=== PATIENT | female | born 1950 | race Caucasian/White ===

== ENCOUNTER 2020-01-21 15:52 | Emergency (ER) | payer MEDICARE, OTHER ==
--- NOTE | 2020-01-21 16:49 | EDM.PDOC ---
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 She thought she may have thrush on top of that. She was given a perscription of nystatin and she has had 4 doses and she feels itchy all over and she does not think her mouith is better. She feels like she is havig a allergic reaction to the nystatin susp. Onset: Today, Gradual Duration: Hour(s): Location: Reports: Generalized, Other (pt feels itch all over. She canot see a rash. ) Associated Symptoms: Reports: No Other Symptoms - Related Data Allergies Allergy/AdvReac Type Severity Reaction Status Date / Time niacin Allergy Other Verified 01/21/20 16:16 shellfish derived Allergy Hives Verified 01/21/20 16:16 prednisone AdvReac Nausea Verified 01/21/20 16:16 Home Meds: Home Meds Aspirin/Butalbital/Caffeine [Fiorinal 50-325-40 MG] 1 cap PO ASDIRECTED [History] EPINEPHrine [Epipen] 1 dose SUBCUT ASDIRECTED PRN 01/21/20 [History] Fluocinonide 1 dose TOP ASDIRECTED 01/21/20 [History] Levothyroxine 1 tab PO DAILY 01/21/20 [History] Nystatin 1 dose PO ASDIRECTED 01/21/20 [History] estradioL [Estradiol] 1 tab PO DAILY 01/21/20 [History] methocarbamoL [Methocarbamol] 500 mg PO Q4H PRN 01/21/20 [History] Past Medical History HEENT History: Reports: Cataract, Impaired Vision, Other (See Below) Other HEENT History: oral lichen planus Cardiovascular History: Reports: Other (See Below) Other Cardiovascular History: vetricle and atrial tachycardia Respiratory History: Reports: Sleep Apnea [employer] History: Reports: Endometriosis, , Spontaneous Musculoskeletal History: Reports: Fracture, Fibromyalgia Neurological History: Reports: Migraines Psychiatric History: Reports: Anxiety, Depression, Suicide Attempt, Other (See Below) Other Psychiatric History: adult ADD Endocrine/Metabolic History: Reports: Hypothyroidism, Other (See Below) Other Endocrine/Metabolic History: martha's thyroiditis Immunologic History: Reports: Other (See Below) Other Immunologic History: martha's - Past Surgical History HEENT Surgical History: Reports: Cataract Surgery, Tonsillectomy Female Surgical History: Reports: D&C Social & Family History - Tobacco Use Smoking Status *Q: Never Smoker - Caffeine Use Caffeine Use: Reports: Coffee Other Caffeine Use: 1 cup per day - Recreational Drug Use Recreational Drug Use: Yes Recreational Drug Type: Reports: Marijuana/Hashish Recreational Drug Use Frequency: Rarely ED ROS ALLERGIC REACTION - Review of Systems Review Of Systems: See Below Constitutional: Reports: No Symptoms, Other ( itching all over) HEENT: Reports: Other (pt has a very sore mouth. ) Respiratory: Reports: No Symptoms Cardiovascular: Reports: No Symptoms Endocrine: Reports: No Symptoms GI/Abdominal: Reports: No Symptoms : Reports: No Symptoms Musculoskeletal: Reports: No Symptoms Skin: Reports: Other (generalized itching. ) Neurological: Reports: No Symptoms Psychiatric: Reports: No Symptoms ED EXAM GENERAL NO PERIP PULSE - Physical Exam Exam: See Below Text/Narrative:: pt arrived after using 4 does of nystatin. She was itching all over and was quite uncomfortable in her mouth. Exam Limited By: No Limitations General Appearance: Alert, Mild Distress Ears: Normal TMs Nose: Normal Inspection Throat/Mouth: Other (pt has a very irritated mouth and shedoes have some white coating on her tongue in patches. A speciman was taken from this which showed yeast present. ) Head: Atraumatic Neck: Normal Inspection Respiratory/Chest: No Respiratory Distress Cardiovascular: Regular Rate, Rhythm GI/Abdominal: Soft, Non-Tender Skin Exam: Other (no rash present.) Course - Vital Signs Last Recorded V/S: Last Vital Signs Temp 36.2 C 01/21/20 16:14 Pulse 84 01/21/20 16:59 Resp 16 01/21/20 16:14 BP 145/76 H 01/21/20 16:59 Pulse Ox 98 01/21/20 16:59 - Orders/Labs/Meds Meds: Medications Discontinued Medications Generic Name Dose Route Start Last Admin Trade Name Freq PRN Reason Stop Dose Admin Al Hydroxide/Mg Hydroxide Confirm 01/21/20 17:54 01/21/20 18:09 Mag-Al Plus Administered 01/21/20 17:55 Not Given Dose 30 ml .ROUTE .STK-MED ONE Diphenhydramine HCl Confirm 01/21/20 17:54 01/21/20 18:09 Benadryl Administered 01/21/20 17:55 Not Given Dose 50 mg .ROUTE .STK-MED ONE Fluconazole 100 mg 01/21/20 17:39 01/21/20 18:08 Diflucan PO 01/21/20 17:40 100 mg ONETIME ONE Administration Hydroxyzine HCl 50 mg 01/21/20 17:00 01/21/20 17:09 Vistaril IM 01/21/20 17:01 50 mg ONETIME ONE Administration Lidocaine HCl Confirm 01/21/20 17:54 01/21/20 18:09 Xylocaine 2% Viscous Administered 01/21/20 17:55 Not Given Dose 30 ml .ROUTE .STK-MED ONE - Re-Assessments/Exams Free Text/Narrative Re-Assessment/Exam: 01/23/20 07:14 pt had taken 2 benadryl at home. She was still itching alot. She was given vistaril 50mg im and did have good relief with that. She was given 1 diflucan 100mg po here 01/23/20 07:16 Departure - Departure Time of Disposition: 17:38 Disposition: Home, Self-Care 01 Condition: Fair Clinical Impression: Thrush, Allergic reaction caused by a drug, Lichen planus - Discharge Information Instructions: Allergies, Adult Referrals: Gwen Ayon DO [Primary Care Provider] - Forms: ED Department Discharge Care Plan Goals: use benadryl 50 mg q6h as needed for itching, get appt with Dr Staley, vistaril 25 mg q6h as needed for marked itching, diflucan 100mg 1 tab take on wednesday am. stop the nystatin use the magic mouthwash as she needs for pain. Sepsis Event Note - Evaluation Sepsis Screening Result: No Definite Risk - Focused Exam Date Exam was Performed: 01/23/20 Time Exam was Performed: 07:08
[2020-01-21] MEDS ORDERED: hydrOXYzine HCL 100 MG/2 ML SDV IM ONE (17:00)
[2020-01-21] MEDS ORDERED: Fluconazole 100 MG Tab PO ONE (17:39)
[2020-01-21] MEDS ORDERED: diphenhydrAMINE 25 MG/10 ML CUP ONE (17:54)
[2020-01-21] MEDS ORDERED: Aluminum Hydroxide/Magnesium Hydroxide/Simethicone Susp 30 ML Cup ONE (17:54)
[2020-01-21] MEDS ORDERED: Lidocaine 2% Viscous Solution 15 ML Cup ONE (17:54)
== END 2020-01-21 18:15 | disposition home or self-care (01) ==
LOC: JP.ED 15:52
DX: B37.0 Candidal stomatitis (principal); L43.9 Lichen planus, unspecified; T36.7X5A Adverse effect of antifungal antibiotics, systemically used, initial encounter; E03.9 Hypothyroidism, unspecified; E06.3 Autoimmune thyroiditis; Z91.013 Allergy to seafood; Z88.8 Allergy status to other drugs, medicaments and biological substances; Z79.899 Other long term (current) drug therapy
CPT/HCPCS: 87220; 99283; A9270; J3410; 96372